=== PATIENT | male | born 1980 | race Caucasian/White ===

== ENCOUNTER 2023-11-02 21:01 | Inpatient (IN) | payer MEDICAID ==
[~2023-11-02] VITALS: Ht 165.1 cm; Wt 68.0 kg
[2023-11-02 21:11] VITALS: BP 92/53; PULSE 127; RESP 16; TEMP 99.4; O2SAT 96
[2023-11-02 21:55] LABS: BASOPHILS % (AUTO) 0.4 % (0.0-2.0); HEMATOCRIT 46.6 % (36-52); LYMPHOCYTES # (AUTO) 1.1 K/uL (2.0-11.5); LYMPHOCYTES % (AUTO) 8.6 % (20.5-51.1); MEAN CORPUSCULAR HEMOGLOBIN 32 pg (27-31); MEAN CORPUSCULAR HGB CONC 34 g/dL (33-37); MEAN CORPUSCULAR VOLUME 91.7 fL (80-94); MONOCYTES # (AUTO) 0.3 K/uL (0.8-1.0); MONOCYTES % (AUTO) 2.6 % (1.7-9.3); NEUTROPHILS # (AUTO) 11.1 K/uL (1.8-7.7); NEUTROPHILS % (AUTO) 88.4 % (42.2-75.2); PLATELET COUNT (AUTO) 234 K/uL (140-450); RED BLOOD CELL COUNT(AUTO) 5.09 MIL/uL (4.20-6.10); RED CELL DISTRIBUTION WIDTH 13.1 % (11.6-13.7); WHITE BLOOD COUNT (AUTO) 12.5 K/uL (4.8-10.8)
[2023-11-02] MEDS: PANTOPRAZOLE 40 MG INJ VIAL IVP ONE (22:05)
[2023-11-02] MEDS: NACL 0.9% 1,000 ML IV SCH ×2 (22:06→23:41)
[2023-11-02] MEDS: ONDANSETRON 4 MG/2 ML VIAL IVP ONE (22:06)
[2023-11-02 22:07] LABS: ANION GAP 20.1 (8-16); CARBON DIOXIDE 24.6 mmol/L (21-32); CREATININE 0.8 mg/dL (0.6-1.3); POTASSIUM 3.7 mmol/L (3.5-5.1)
[2023-11-02 22:14] LABS: ALBUMIN 4.1 g/dL (3.4-5.0); BILIRUBIN,DIRECT 0.2 mg/dL (0.0-0.3); TOTAL BILIRUBIN 1.3 mg/dL (0.0-1.0); TOTAL PROTEIN, SERUM 7.5 g/dL (6.4-8.2)
[2023-11-02 22:17] VITALS: O2SAT 96
[2023-11-02] MEDS ORDERED: POTASSIUM CHLORIDE 10 MEQ TABER PO PRN (23:15)
[2023-11-02] MEDS ORDERED: HYDROcodone/APAP 7.5/325 MG 1 TAB PO PRN (23:15)
[2023-11-02] MEDS ORDERED: DOCUSATE SODIUM 100 MG GELCAP PO PRN (23:15)
[2023-11-02] MEDS ORDERED: guaiFENesin DM 200/20 MG-10 ML 10 ML UDC PO PRN (23:15)
[2023-11-02] MEDS ORDERED: ZOLPIDEM 5 MG TAB PO PRN (23:15)
[2023-11-02] MEDS ORDERED: ACETAMINOPHEN 325 MG TAB PO PRN (23:15)
[2023-11-03 01:04] VITALS: O2SAT 97
[2023-11-03 03:04] VITALS: O2SAT 97
[2023-11-03] MEDS: ONDANSETRON 4 MG/2 ML VIAL IM/IVP PRN (05:09)
[2023-11-03 06:42] LABS: BASOPHILS # (AUTO) 0.3 K/uL (0.00-0.22); BASOPHILS % (AUTO) 3.1 % (0.0-2.0); HEMATOCRIT 43.6 % (36-52); LYMPHOCYTES # (AUTO) 1.2 K/uL (2.0-11.5); LYMPHOCYTES % (AUTO) 10.9 % (20.5-51.1); MEAN CORPUSCULAR HEMOGLOBIN 32 pg (27-31); MEAN CORPUSCULAR HGB CONC 35 g/dL (33-37); MEAN CORPUSCULAR VOLUME 92.2 fL (80-94); MONOCYTES # (AUTO) 1.1 K/uL (0.8-1.0); MONOCYTES % (AUTO) 9.9 % (1.7-9.3); NEUTROPHILS # (AUTO) 8.2 K/uL (1.8-7.7); NEUTROPHILS % (AUTO) 76.1 % (42.2-75.2); PLATELET COUNT (AUTO) 228 K/uL (140-450); RED BLOOD CELL COUNT(AUTO) 4.73 MIL/uL (4.20-6.10); RED CELL DISTRIBUTION WIDTH 13.2 % (11.6-13.7); WHITE BLOOD COUNT (AUTO) 10.8 K/uL (4.8-10.8)
[2023-11-03 07:05] LABS: ALBUMIN 3.6 g/dL (3.4-5.0); ANION GAP 18.5 (8-16); CALCIUM 8.4 mg/dL (8.5-10.1); CARBON DIOXIDE 23.2 mmol/L (21-32); CREATININE 0.8 mg/dL (0.6-1.3); POTASSIUM 3.7 mmol/L (3.5-5.1); TOTAL BILIRUBIN 1.2 mg/dL (0.0-1.0); TOTAL PROTEIN, SERUM 6.5 g/dL (6.4-8.2)
[2023-11-03 08:11] VITALS: PULSE 119
[2023-11-03] MEDS ORDERED: PANTOPRAZOLE 40 MG TABEC PO SCH (09:00)
[2023-11-03] MEDS ORDERED: DEXTROSE 50% 50 ML SYR IVP PRN (09:40)
[2023-11-03] MEDS: BLOOD GLUCOSE MONITORING 1 DEV DEV FS SCH (11:30)
[2023-11-03 12:00] VITALS: BP 123/68; PULSE 107; PULSE 18; RESP 20; TEMP 97.1; O2SAT 68
[2023-11-03 16:00] VITALS: BP 128/52; PULSE 115; PULSE 19; RESP 19; TEMP 98.2; O2SAT 72
[2023-11-03 20:00] VITALS: BP 123/66; PULSE 103; PULSE 19; RESP 19; TEMP 98; O2SAT 72; O2SAT 96
[2023-11-03] MEDS: PANTOPRAZOLE 40 MG INJ VIAL IVP SCH (21:32)
[2023-11-03] MEDS: INSULIN LISPRO SLIDING SCALE 100 UNITS/ML VIAL SUBQ PRN (21:42)
[2023-11-04] VITALS (9 sets, daily range): BP systolic 112–174; BP diastolic 52–96; PULSE 88–112; RESP 18–19; TEMP 97.6–99.5; O2SAT 72–98
[2023-11-04 05:31] LABS: BASOPHILS % (AUTO) 0.3 % (0.0-2.0); EOSINOPHILS % (AUTO) 0.3 % (0.0-4.0); HEMATOCRIT 40.5 % (36-52); LYMPHOCYTES # (AUTO) 2.4 K/uL (2.0-11.5); LYMPHOCYTES % (AUTO) 25.7 % (20.5-51.1); MEAN CORPUSCULAR HEMOGLOBIN 32 pg (27-31); MEAN CORPUSCULAR HGB CONC 35 g/dL (33-37); MEAN CORPUSCULAR VOLUME 92.5 fL (80-94); MONOCYTES # (AUTO) 0.9 K/uL (0.8-1.0); MONOCYTES % (AUTO) 9.8 % (1.7-9.3); NEUTROPHILS # (AUTO) 5.9 K/uL (1.8-7.7); NEUTROPHILS % (AUTO) 63.9 % (42.2-75.2); PLATELET COUNT (AUTO) 215 K/uL (140-450); RED BLOOD CELL COUNT(AUTO) 4.37 MIL/uL (4.20-6.10); RED CELL DISTRIBUTION WIDTH 13.3 % (11.6-13.7); WHITE BLOOD COUNT (AUTO) 9.2 K/uL (4.8-10.8)
[2023-11-04 07:02] LABS: ALBUMIN 3.1 g/dL (3.4-5.0); ANION GAP 14.7 (8-16); CALCIUM 8.1 mg/dL (8.5-10.1); CARBON DIOXIDE 23.9 mmol/L (21-32); CREATININE 0.7 mg/dL (0.6-1.3); POTASSIUM 3.6 mmol/L (3.5-5.1); TOTAL BILIRUBIN 1.2 mg/dL (0.0-1.0); TOTAL PROTEIN, SERUM 5.7 g/dL (6.4-8.2)
[2023-11-04] MEDS: METOCLOPRAMIDE 10 MG/2 ML INJ VIAL IVP PRN (12:39)
[2023-11-04] MEDS: METOCLOPRAMIDE 10 MG/2 ML INJ VIAL IVP SCH (13:05)
[2023-11-05 04:00] VITALS: BP 156/87; PULSE 87; PULSE 94; RESP 19; TEMP 98; O2SAT 97
[2023-11-05 05:42] LABS: BASOPHILS # (AUTO) 0.1 K/uL (0.00-0.22); BASOPHILS % (AUTO) 0.6 % (0.0-2.0); EOSINOPHILS % (AUTO) 0.4 % (0.0-4.0); HEMATOCRIT 40.8 % (36-52); HEMOGLOBIN 14.1 g/dL (12.0-18.0); LYMPHOCYTES # (AUTO) 2.5 K/uL (2.0-11.5); LYMPHOCYTES % (AUTO) 25.1 % (20.5-51.1); MEAN CORPUSCULAR HEMOGLOBIN 32 pg (27-31); MEAN CORPUSCULAR HGB CONC 35 g/dL (33-37); MEAN CORPUSCULAR VOLUME 92.6 fL (80-94); MONOCYTES # (AUTO) 0.8 K/uL (0.8-1.0); MONOCYTES % (AUTO) 7.6 % (1.7-9.3); NEUTROPHILS # (AUTO) 6.6 K/uL (1.8-7.7); NEUTROPHILS % (AUTO) 66.3 % (42.2-75.2); PLATELET COUNT (AUTO) 225 K/uL (140-450); RED BLOOD CELL COUNT(AUTO) 4.41 MIL/uL (4.20-6.10); RED CELL DISTRIBUTION WIDTH 12.7 % (11.6-13.7); WHITE BLOOD COUNT (AUTO) 9.9 K/uL (4.8-10.8)
[2023-11-05 06:33] LABS: ALBUMIN 3.1 g/dL (3.4-5.0); ANION GAP 16.6 (8-16); CALCIUM 8.4 mg/dL (8.5-10.1); CARBON DIOXIDE 23.1 mmol/L (21-32); CREATININE 0.7 mg/dL (0.6-1.3); POTASSIUM 3.7 mmol/L (3.5-5.1); TOTAL BILIRUBIN 1.4 mg/dL (0.0-1.0); TOTAL PROTEIN, SERUM 5.9 g/dL (6.4-8.2)
[2023-11-05 08:00] VITALS: BP 156/57; PULSE 106; PULSE 97; RESP 21; TEMP 98.9; O2SAT 98
[2023-11-05] MEDS: ONDANSETRON 4 MG/2 ML VIAL IVP PRN (09:18)
[2023-11-05 12:00] VITALS: BP 144/47; PULSE 107; PULSE 97; RESP 20; TEMP 99.9; O2SAT 97
[2023-11-05 16:00] VITALS: BP 178/98; PULSE 103; PULSE 113; RESP 20; TEMP 97.2; O2SAT 98
[2023-11-05] MEDS: hydrALAZINE 20 MG/ML VIAL IVP PRN (16:36)
[2023-11-05 20:00] VITALS: BP 127/75; PULSE 100; PULSE 103; RESP 20; RESP 21; TEMP 99.4; O2SAT 98
[2023-11-06] VITALS: BP 128/73; PULSE 103; PULSE 111; RESP 19; TEMP 98.5; O2SAT 98
[2023-11-06 04:00] VITALS: BP 148/73; PULSE 98; RESP 19; TEMP 98.5; O2SAT 98
[2023-11-06 05:34] LABS: BASOPHILS # (AUTO) 0.1 K/uL (0.00-0.22); EOSINOPHILS % (AUTO) 0.1 % (0.0-4.0); HEMATOCRIT 43.7 % (36-52); HEMOGLOBIN 14.8 g/dL (12.0-18.0); LYMPHOCYTES # (AUTO) 2.3 K/uL (2.0-11.5); LYMPHOCYTES % (AUTO) 23.4 % (20.5-51.1); MEAN CORPUSCULAR HEMOGLOBIN 32 pg (27-31); MEAN CORPUSCULAR HGB CONC 34 g/dL (33-37); MEAN CORPUSCULAR VOLUME 92.9 fL (80-94); MONOCYTES # (AUTO) 0.7 K/uL (0.8-1.0); MONOCYTES % (AUTO) 6.9 % (1.7-9.3); NEUTROPHILS # (AUTO) 6.7 K/uL (1.8-7.7); NEUTROPHILS % (AUTO) 68.6 % (42.2-75.2); PLATELET COUNT (AUTO) 230 K/uL (140-450); RED BLOOD CELL COUNT(AUTO) 4.71 MIL/uL (4.20-6.10); WHITE BLOOD COUNT (AUTO) 9.8 K/uL (4.8-10.8)
[2023-11-06 06:04] LABS: ALBUMIN 3.6 g/dL (3.4-5.0); ANION GAP 23.2 (8-16); CALCIUM 8.5 mg/dL (8.5-10.1); CARBON DIOXIDE 18.3 mmol/L (21-32); CREATININE 0.7 mg/dL (0.6-1.3); POTASSIUM 3.5 mmol/L (3.5-5.1); TOTAL BILIRUBIN 1.7 mg/dL (0.0-1.0); TOTAL PROTEIN, SERUM 6.6 g/dL (6.4-8.2)
[2023-11-06 08:00] VITALS: BP 137/71; PULSE 105; PULSE 97; RESP 18; TEMP 99.2; O2SAT 97
[2023-11-06 12:00] VITALS: BP 129/69; PULSE 106; RESP 18; TEMP 98.6; O2SAT 98
[2023-11-06] MEDS ORDERED: ONDA-188 PO (13:20)
[2023-11-06] MEDS ORDERED: LISI5TAB18 PO (13:20)
[2023-11-06] MEDS ORDERED: METF-346 PO (13:20)
[2023-11-06 14:05] VITALS: BP 129/69; PULSE 106; RESP 18; TEMP 98.6
== END 2023-11-06 15:00 | disposition home or self-care (01) | DRG 48 ==
LOC: MED 21:01 → MTU 23:14 → MMU 11-03 06:26
PROVIDERS: ADMIT Student in an Organized Health Care Education/Training Program; ATTEND Student in an Organized Health Care Education/Training Program
DX: E11.43 Type 2 diabetes mellitus with diabetic autonomic (poly)neuropathy (principal); R65.10 Systemic inflammatory response syndrome (SIRS) of non-infectious origin without acute organ dysfunction; K31.84 Gastroparesis; D72.829 Elevated white blood cell count, unspecified; Z79.899 Other long term (current) drug therapy
CPT/HCPCS: 36415; 71045; 80048; 80053; 80076; 82948; 83036; 83690; 85025; 86886; 86900; 86901; 87081; 93005; 96361; 96374; 96375; 99285; C9113; G0482; J0360; J1815; J2405; J2765